=== PATIENT | female | born 1940 | race Caucasian/White ===

== ENCOUNTER 2019-03-20 06:56 | Day surgery (SDC) | payer OTHER ==
[~2019-03-20 06:56] MED LIST: GRALISE600 MG; LOSARTAN-HCTZ1 EAC1 PO; METFORMIN PO; SYNTH PO; SYNTHROID100 MCG PO
== END 2019-03-20 12:25 | disposition home or self-care (01) ==
LOC: CIR.AMB 06:56
DX: N87.1 Moderate cervical dysplasia (principal)